=== PATIENT | male | born 1945 | race Caucasian/White ===

== ENCOUNTER 2020-05-04 07:36 | Day surgery (SDC) | payer MEDICARE ==
[~2020-05-04 07:36] MED LIST: Midazolam 1 MG/ML 2 ML SDV ONE; Ondansetron 4 MG/2 ML SDV ONE; Propofol 200 MG/20 ML SDV ONE; fentaNYL 100 MCG/2 ML SDV ONE
--- NOTE | 2020-05-04 08:08 | PCM.PREANE ---
Preanesthetic Assessment - Anesthesia/Transfusion/Family Hx Anesthesia History: Prior Anesthesia Without Reaction Family History of Anesthesia Reaction: No Transfusion History: Prior Transfusion Without Reaction - Review of Systems General: No Symptoms Pulmonary: No Symptoms Cardiovascular: No Symptoms Gastrointestinal: No Symptoms Neurological: No Symptoms Other: Reports: None - Physical Assessment NPO Status Date: 05/03/20 Height: 5 ft 10 in Weight: 74.389 kg ASA Class: 3 Mental Status: Alert & Oriented x3 Airway Class: Mallampati = 2 Dentition: Reports: Normal Dentition ROM/Head Extension: Full Lungs: Clear to Auscultation, Normal Respiratory Effort Cardiovascular: Regular Rate, Regular Rhythm - Allergies Allergies/Adverse Reactions: Allergies Allergy/AdvReac Type Severity Reaction Status Date / Time No Known Allergies Allergy Verified 04/14/20 12:29 - Blood Blood Available: No - Anesthesia Plan Pre-Op Medication Ordered: None - Acknowledgements Anesthesia Type Planned: General Anesthesia (tiva) Pt an Appropriate Candidate for the Planned Anesthesia: Yes Alternatives and Risks of Anesthesia Discussed w Pt/Guardian: Yes Pt/Guardian Understands and Agrees with Anesthesia Plan: Yes Additional Comments: pmh: s/p renal transplant, yudith- has lost cpap machine, smoker, daily cannabis, bp 145/90 in office, PLAN: tiva PreAnesthesia Questionnaire HEENT History: Reports: Other (See Below) Other HEENT History: uses reading glasses, is getting teeth pulled Cardiovascular History: Reports: High Cholesterol, Hypertension Respiratory History: Reports: Sleep Apnea Other Respiratory History: has used CPAP in the past- but not for the last year (lost his machine) Gastrointestinal History: Reports: Colon Polyp, PUD, Other (See Below) Other Gastrointestinal History: occasional heartburn, hx of dysphagia Genitourinary History: Reports: Renal Disease Musculoskeletal History: Reports: Fracture, Gout Other Musculoskeletal History: hx of fx nose x2 Neurological History: Reports: Other (See Below) Other Neuro History: hx of stress headaches, hx of Shingles Hematologic History: Reports: Blood Transfusion(s) Immunologic History: Reports: Immunosuppression, Solid Organ Transplant Oncologic (Cancer) History: Reports: Other (See Below) Other Oncologic History: hx of skin cancer- unknown type- removed from arms Dermatologic History: - Infectious Disease History Infectious Disease History: Reports: None - Past Surgical History Head Surgeries/Procedures: Reports: None HEENT Surgical History: Reports: Other (See Below) Other HEENT Surgeries/Procedures: closed reduction fx nose x2 GI Surgical History: Reports: Colonoscopy, Hernia, Inguinal Other Female Surgeries/Procedures: hx of Nephrectomy and Kidney Transplant Male Surgical History: Reports: Nephrectomy Dermatological Surgical History: Reports: Skin Biopsy - SUBSTANCE USE Tobacco Use Status *Q: Current Every Day Tobacco User Tobacco Use Within Last Twelve Months: Cigarettes Recreational Drug Use History: Yes Recreational Drug Type: Reports: Marijuana/Hashish - HOME MEDS Home Medications: Home Meds Minipress 5 mg PO DAILY 04/14/20 [History] Mycophenolate Sodium [Mycophenolic Acid] 360 mg PO BID 04/14/20 [History] Pramipexole Di-HCl [Pramipexole Dihydrochloride] 0.5 mg PO BEDTIME 04/14/20 [History] Pravastatin Sodium 80 mg PO DAILY 04/14/20 [History] Tacrolimus 2 mg PO BID 04/14/20 [History] carvediloL [Carvedilol] 12.5 mg PO BID 04/14/20 [History] predniSONE [Prednisone] 5 mg PO QAM 04/14/20 [History] - CURRENT (IN HOUSE) MEDS Current Meds: Current Medications Discontinued Medications Fentanyl (Sublimaze) Confirm Administered Dose 100 mcg .ROUTE .STK-MED ONE Stop: 05/04/20 07:16 Lidocaine HCl (Xylocaine-Mpf 1%) Confirm Administered Dose 5 ml .ROUTE .STK-MED ONE Stop: 05/04/20 07:16 Midazolam HCl (Versed 1 Mg/Ml) Confirm Administered Dose 2 mg .ROUTE .STK-MED ONE Stop: 05/04/20 07:16 Ondansetron HCl (Zofran) Confirm Administered Dose 4 mg .ROUTE .STK-MED ONE Stop: 05/04/20 07:16 Propofol (Diprivan 20 Ml) Confirm Administered Dose 200 mg .ROUTE .STK-MED ONE Stop: 05/04/20 07:16
[2020-05-04] MEDS ORDERED: Lactated Ringers 1,000 ML IV SCH (08:30)
--- NOTE | 2020-05-04 09:32 | PCM.OPNOTE ---
- General Post-Op/Procedure Note Date of Surgery/Procedure: 05/04/20 Operative Procedure(s): Colonoscopy, polypectomy and EGD with biopsies Findings: Mild Gastritis, irregular GE junction, Pandiverticulosis, Colon polyps. Dictation #[id number] Pre Op Diagnosis: History of colon polyps, history of GERD Post-Op Diagnosis: Mild Gastritis, irregular GE junction, Pandiverticulosis, Colon polyps Anesthesia Technique: Moderate Sedation Primary Surgeon: Rashi Samuel Pathology: EGD with biopsies and colon polyps Complications: None Condition: Good
--- NOTE | 2020-05-04 10:07 | PCM.POSTAN ---
POST ANESTHESIA ASSESSMENT - MENTAL STATUS Mental Status: Alert, Oriented - VITAL SIGNS Vital Signs: Last Vital Signs Temp 97.0 F 05/04/20 08:04 Pulse 61 05/04/20 09:34 Resp 19 05/04/20 09:34 BP 106/51 L 05/04/20 09:34 Pulse Ox 97 05/04/20 09:34 - RESPIRATORY Respiratory Status: Respiratory Rate WNL, Airway Patent, O2 Saturation Stable - CARDIOVASCULAR CV Status: Pulse Rate WNL, Blood Pressure Stable - GASTROINTESTINAL GI Status: No Symptoms - POST OP HYDRATION Hydration Status: Adequate & Stable
--- NOTE | 2020-05-04 10:07 | PCM48HPAN ---
Post Anesthesia Note - EVALUATION WITHIN 48HRS OF ANESTHETIC Vital Signs in Normal Range: Yes Patient Participated in Evaluation: Yes Respiratory Function Stable: Yes Airway Patent: Yes Cardiovascular Function Stable: Yes Hydration Status Stable: Yes Pain Control Satisfactory: Yes Nausea and Vomiting Control Satisfactory: Yes Mental Status Recovered: Yes Vital Signs: Last Vital Signs Temp 97.0 F 05/04/20 08:04 Pulse 61 05/04/20 09:34 Resp 19 05/04/20 09:34 BP 106/51 L 05/04/20 09:34 Pulse Ox 97 05/04/20 09:34
--- NOTE | 2020-05-04 12:02 | OR ---
SURGEON: NATALIE COOPER MD DATE OF PROCEDURE: 05/04/2020 PREOPERATIVE DIAGNOSES: 1. History of colon polyps. 2. Weight loss. 3. Occasional nausea and vomiting. 4. Gastroesophageal reflux disease. POSTOPERATIVE DIAGNOSES: 1. Mild gastritis. 2. Slightly irregular gastroesophageal junction. 3. Pandiverticulosis. 4. Colon polyps x3. PROCEDURE PERFORMED: 1. Colonoscopy with snare polypectomy and cold biopsy polypectomy. 2. Esophagogastroduodenoscopy with biopsies. EXTENT OF COLONOSCOPY: To the cecum. EXTENT OF EGD: At least the 1st part of the duodenum. WITHDRAWAL TIME FOR COLONOSCOPY: 20 minutes. LIMITATIONS: None. BOWEL PREP: Good. REASON FOR PROCEDURE: The patient is a pleasant 75-year-old gentleman whose last colonoscopy was 4 years ago. He said they found several polyps. The patient has been having weight loss. He says he has about 100-pound weight loss over the last several years and about 20 over the last 4 months. He says ever since his kidney transplants, he coughs and vomits up some of his food. He also has some teeth that need to be pulled. He is not eating as much. We will do colonoscopy and EGD. PROCEDURE IN DETAIL: Physical examination was performed. The major risks and benefits associated with the procedure were explained to the patient in detail. The patient verbalized understanding of the same. The patient was then connected to appropriate monitoring devices and IV started. EKG, pulse, pulse oximetry, blood pressure, and capnography were monitored throughout the entire procedure. Sedation and oxygenation were provided by the anesthesia team. The patient was placed in left lateral decubitus position and sedation began. After adequate sedation was achieved, the upper endoscope was advanced under direct visualization without any difficulty in the upper GI tract. The anatomy and mucosa of the esophagus, GE junction, stomach, pylorus, and at least the 1st part of duodenum were all inspected. Duodenum appeared normal. Scope was brought out. Both retrograde and antegrade views of the stomach were done. The patient had some mild gastritis. Biopsies were done of the pylorus to check for H pylori; up to the GE junction. GE junction was approximately 38 cm from the incisors. He had a slightly irregular squamocolumnar junction, so several biopsies were done. Scope was brought back into the stomach and the stomach was desufflated. Scope was brought up to the GE junction. There was good hemostasis. Scope was brought up to the esophagus. Esophagus appeared normal. Scope was completely removed and the procedure was terminated. Gloves and scopes were changed. Now, rectal exam was done. No rectal masses or polyps were felt. Now, a well- lubricated Olympus colonoscope was entered in the rectum, advanced under visualization to the level of cecum. The cecum was identified by both visual and anatomic landmarks. Photographs were taken of the cecal cap. Scope was then slowly withdrawn in somewhat circular fashion looking at the color, texture, anatomy, and integrity of the mucosa from the cecum to the anal canal. The patient did have quite a bit of liquid stool that was suctioned and irrigated out for good look at the mucosa. The patient did have a sessile polyp right about the hepatic flexure at 65 cm, this was removed with a hot snare polypectomy. The polyp appeared to be completely removed. The mucosal edges were then reapproximated with a resolution clip. Scope was continued to be withdrawn. The patient had another polyp at about 55 cm, this was small and removed with cold biopsy polypectomy. There was good hemostasis, and appeared to be completely removed. Scope was continued to be withdrawn. The patient had another polyp at 30 cm. This was removed with hot snare polypectomy and mucosal edges closed with resolution clips. The patient did have diverticulosis throughout the entirety of his colon, but it is more concentrated in the sigmoid colon with fairly large mouth open diverticulum throughout the sigmoid colon. The scope was retroflexed in the rectum. Scope was completely removed. The procedure was terminated. ENDOSCOPIC DIAGNOSES: 1. Mild gastritis. 2. Slightly irregular gastroesophageal junction. 3. Pandiverticulosis. 4. Multiple colon polyps. RECOMMENDATIONS: The patient's followup colonoscopy will depend on the pathology, but most likely another one in 5 years, sooner if he develops signs or symptoms such as change in bowel habits or blood in the stool. EGD did not find a reason really for his nausea and vomiting. The patient will come in followup for his pathology on his biopsies. The patient may need to follow up with his primary care provider since his symptoms really started after his transplant. There was air and not all pictures were taken or printed. TED / ANNELIESE /[id number]
== END 2020-05-04 10:05 | disposition home or self-care (01) ==
LOC: MW.SDS 07:36
PROVIDERS: ATTEND Surgery
DX: D12.3 Benign neoplasm of transverse colon (principal); K29.50 Unspecified chronic gastritis without bleeding; K57.30 Diverticulosis of large intestine without perforation or abscess without bleeding; K29.00 Acute gastritis without bleeding; K21.9 Gastro-esophageal reflux disease without esophagitis; K22.8 Other specified diseases of esophagus; K31.89 Other diseases of stomach and duodenum; R63.4 Abnormal weight loss; I10 Essential (primary) hypertension; E78.00 Pure hypercholesterolemia, unspecified; G47.30 Sleep apnea, unspecified; F17.210 Nicotine dependence, cigarettes, uncomplicated; Z94.0 Kidney transplant status; Z86.010 Personal history of colon polyps; Z98.890 Other specified postprocedural states; Z79.899 Other long term (current) drug therapy
CPT/HCPCS: 43239; 45380; 45385; J2001; J2250; J2405; J2704; J3010; J7120

== ENCOUNTER 2021-07-28 01:09 | Emergency (ER) | payer MEDICARE ==
[2021-07-28] MEDS ORDERED: Acetaminophen/oxyCODONE 325-5 MG Tab PO ONE (01:39)
[2021-07-28] MEDS ORDERED: Ketorolac 30 MG/ML SDV IM ONE (01:39)
[2021-07-28] MEDS ORDERED: Dexamethasone 10 MG/ML SDV IM STA (01:39)
[2021-07-28] MEDS ORDERED: Morphine 4 MG/ML VIAL IM ONE (02:22)
== END 2021-07-28 03:30 | disposition home or self-care (01) ==
LOC: MW.ED 01:09
DX: M25.512 Pain in left shoulder (principal); E78.00 Pure hypercholesterolemia, unspecified; I10 Essential (primary) hypertension; Z79.899 Other long term (current) drug therapy
CPT/HCPCS: 73030; 93005; 96372; 99283; A9270; J1100; J1885; J2270